=== PATIENT | male | born 1960 | race Caucasian/White ===

== ENCOUNTER → 2018-07-30 10:08 | Outpatient (CLI) | payer BC | END | disposition home or self-care (01) | LOC: D.CT 07-29 08:00 | DX: J32.9 Chronic sinusitis, unspecified (principal) ==

== ENCOUNTER 2018-11-22 09:53 | Day surgery (SDC) | payer BC ==
[~2018-11-22] VITALS: Ht 157.5 cm; Wt 46.3 kg
[2018-11-22] MEDS ORDERED: ADVAIR HFA [SP]12 GM INH (13:00)
[2018-11-22] MEDS ORDERED: ALBUTEROL SULF8.5 GM (13:02)
[2018-11-22 13:20] VITALS: BP 134/70; Ht 157.5 cm; Wt 46.3 kg
[2018-11-22 13:46] LABS: BASOPHILS 0.3 % (0-2); EOSINOPHILS 6.9 % (0-7); HEMATOCRIT 42.3 % (42.0-54.0); HEMOGLOBIN 14.9 g/dL (13.5-17.5); IMMATURE GRANULOCYTES 0.2 % (0-5); LYMPHOCYTES 41.2 % (15-50); MCHC 35.2 g/dL (31.0-37.0); MCV 88.1 fL (80.0-100.0); MEAN PLATELET VOLUME 8.6 fL (7.4-10.4); MONOCYTES 8.5 % (2-11); NEUTROPHILS 42.9 % (40-80); PLATELET COUNT 218 10x3/uL (130-400); RDW 12.4 % (11.5-14.5); WBC 6.5 10x3/uL (4.8-10.8)
--- NOTE | 2018-11-22 16:03 | NUR ---
PT NOSE BLEEDING HAS STOPPED.
--- NOTE | 2018-11-22 16:10 | NUR ---
REC'D FROM RR. FAMILY AT BEDSIDE. FL TRAY BROUGHT TO PATIENT.
--- NOTE | 2018-11-22 16:40 | NUR ---
TOLERATING FL TRAY. SCANT AMOUNT OF BLOODY DRAINAGE COMING FROM NOSE. INSTRUCTED PATIENT DR WALKER ORDERED LIGHT BLOWING OF NOSE. VERBALIZED UNDERSTANDING.
--- NOTE | 2018-11-22 17:40 | NUR ---
IV DC'D WITH CATHETER INTACT. WRITTEN AND VERBAL DC INST GIVEN TO PATIENT. VERBALIZED UNDERSTANDING. DRESSING APPLIED TO UNDERNEATH OF NOSE.
--- NOTE | 2018-11-22 17:45 | NUR ---
DC'D HOME WITH FAMILY VIA PRIVATE VEHICLE. STABLE AT TIME OF DC.
--- NOTE | 2018-11-23 14:43 | HP ---
PATIENT: ANDRA AG MEDICAL RECORD: [id number] ACCOUNT: [id number] LOCATION:[facility] : 60 ADMISSION DATE: 11/22/18 PCP: LEE RATLIFF MD HISTORY AND PHYSICAL EXAMINATION HISTORY OF PRESENT ILLNESS: Mr. Ag is a 58-year-old male. He has had problems with chronic pansinusitis and nasal polyposis. He has been admitted for bilateral endoscopic nasal polypectomy and sinus surgery. PAST MEDICAL HISTORY: Includes reactive airway disease. PAST SURGICAL HISTORY: Includes shoulder surgery earlier this year. CURRENT MEDICATIONS: Advair. ALLERGIES: IODINE. PHYSICAL EXAMINATION: GENERAL: He is healthy appearing. He does breathe through his mouth. EYES: Sclerae and conjunctivae are normal. EARS: Canals and TMs are normal. NOSE: Polyps obstructing both sides of the nasal cavity all. ORAL CAVITY AND OROPHARYNX: Tongue protrudes in midline. Pharynx is normal. NECK: No masses, no adenopathy. CT shows has opacification of the sinuses. CHEST: Clear. CARDIOVASCULAR: Regular rate and rhythm, no murmur. EXTREMITIES: Normal. IMPRESSION: Chronic pansinusitis and bilateral massive nasal polyposis. PLAN: Bilateral nasal endoscopic polypectomy, bilateral middle meatal antrostomy, bilateral ethmoidectomy and bilateral inferior turbinate reduction. TRANSINT:[id number] Voice Confirmation ID: [id number] DOCUMENT ID: [id number] SHANNAN WALKER MD at 1443 CC: [id number] DICTATION DATE: 11/18/18 1538 MARKET MANAGER: 11/18/18 1616 [facility] 11/22/[address] [address]
--- NOTE | 2018-11-23 14:43 | OP ---
PATIENT NAME: ANDRA AG MEDICAL RECORD: [id number] :60 LOCATION:[facility] ADMISSION DATE: SURGEON: SHANNAN WALKER MD DATE OF OPERATION: 11/22/2018 PREOPERATIVE DIAGNOSES: Bilateral massive nasal polyposis, nasal obstruction, and chronic sinusitis. POSTOPERATIVE DIAGNOSES: Bilateral massive nasal polyposis, nasal obstruction, and chronic sinusitis. PROCEDURES: Bilateral endoscopic nasal polypectomy, bilateral middle meatal antrostomy with removal of polyps from both sides, bilateral ethmoidectomy, and bilateral inferior turbinate reduction. SPECIMENS: Right and left nasal polyps. Cultures from the left maxillary sinus. NASAL PACKING: None. FloSeal was used. COMPLICATIONS: None. DISPOSITION: Recovery, stable. DESCRIPTION OF PROCEDURE: He was brought to the operating room, placed in the supine position, and sedated by anesthesia. The eyes were lubricated. The table was turned 90 degrees. He was positioned for a sinus surgery. He had been decongested with Afrin preoperatively. Using headlight and nasal speculum, both sides of the nose were just basically totally obstructed with nasal polyps. I could see the very anterior aspect of the inferior turbinates, but that is all that. The polyps were injected with a total of 1.5 cc of 1% lidocaine with 1:100,000 epinephrine. I placed two Afrin pledgets on each side of the nose. He was positioned, prepped, and draped for sinus surgery. Then, using a Bushra forceps, large pieces of polyps were removed starting anteriorly on the right side and proceeding posteriorly. The inferior turbinate was obviously pushed inferiorly somewhat. There were large polyps on the maxillary sinus, removed as well. Posteriorly, on the right side, one large polyp was pulled out and it was obviously coming from a perforation and coming from the left side of the nose. There was a large posterior septal perforation. This proceeded all the way back to the nasopharynx. Once that was done, a microdebrider was brought in to clean up massive amount of nasal polyps to visualize the entire opening of the maxillary sinus where the polyps were coming out. Large polyps were suctioned out of the sinus on the right side and then the entire ethmoid cavity and off of what little bit of the middle turbinate there was and then posteriorly as well, just suctioned out massive amounts of nasal polyposis. The nasopharynx was clear. Once that was done, some Afrin pledgets were placed in the right side of the nose and then I started on the left side, again removing polyps with Bushra forceps, just large pieces, to expose the nasal cavity where I could see. Then, using the microdebrider, I opened up the middle meatus, the ethmoid cavity, and again large polyps from the left maxillary sinus. However, once I started removing those, there was copious purulence that started to drain as well. I got cultures of that. I again proceeded to remove polyps all the way posteriorly from the nasal cavity and some emanating from the edges of that septal perforation. Then, Afrin pledgets were placed in the left side of the nose as well. After waiting few minutes, I removed all the Afrin pledgets from OPERATIVE REPORT [id number] ANDRA AG both sides and then used saline and curved olive tip suction to rinse out both maxillary sinuses, the ethmoid cavities, and the nasopharynx and just rinsed everything out repeatedly. I then was able to come back in with the microdebrider and clean everything up to expose the anatomy better. Most of the ethmoid cavity was distorted anatomy from the massive polyposis as well as very little bit of middle turbinate. There were large maxillary ostia on both sides with extensive polyps filling both maxillary sinuses. Suction cautery was used to cauterize some redundant polypoid tissue on the inferior turbinates and then they were both outfractured. I then rinsed out to again carefully use suction Bovie to stop a little bit of bleeding from some places around maxillary ostia. There was not much bleeding from anywhere, but just because of the massive mucosal surface area of polyps, there was just a little bit of oozing, so I used some FloSeal and placed it in the septal perforation posteriorly, in the ethmoid cavity bilaterally, and the maxillary sinuses. He was then awakened, extubated, and transported to recovery in good condition. No complications. TRANSINT:[id number] Voice Confirmation ID: [id number] DOCUMENT ID: [id number] SHANNAN WALKER MD at 1443 CC: [id number] DICTATION DATE: 11/22/18 155 [employer] LEVER TENDER: 11/22/[address] [facility] 11/22/[address] [facility] [address] [place] [address]
== END 2018-11-22 17:45 | disposition home or self-care (01) ==
LOC: D.OPS 09:53 → D.PAN 11:45 → D.OPS 11:45
PROVIDERS: Anesthesiology; ATTEND Otolaryngology
DX: J33.0 Polyp of nasal cavity (principal); J34.89 Other specified disorders of nose and nasal sinuses; J33.8 Other polyp of sinus; J32.9 Chronic sinusitis, unspecified; Z01.812 Encounter for preprocedural laboratory examination